=== PATIENT | female | born 1985 | race Caucasian/White ===

== ENCOUNTER 2017-10-09 15:34 | Outpatient (CLI) | END 2017-10-09 17:10 | disposition home or self-care (01) ==

== ENCOUNTER 2017-12-19 10:47 | Outpatient (CLI) | END 2017-12-19 12:05 | disposition home or self-care (01) ==

== ENCOUNTER 2018-02-26 05:51 | Inpatient (IN) | END 2018-03-01 14:15 | disposition home or self-care (01) | DRG 765 ==